=== PATIENT | male | born 1990 | race Caucasian/White ===

== ENCOUNTER 2020-12-19 21:55 | Emergency (ER) | payer OTHER ==
[~2020-12-19] VITALS: Ht 175.3 cm; Wt 97.5 kg
[2020-12-19] MEDS ORDERED: Adipex-P37.5 M1 PO (22:23)
[2020-12-19] MEDS ORDERED: CYCL10 (22:23)
[2020-12-19] MEDS ORDERED: ZOLPIDEM TARTRA10 MG PO (22:23)
[2020-12-19] MEDS ORDERED: VENLAFAXINE ER 150MG (22:24)
== END 2020-12-20 00:11 | disposition home or self-care (01) ==
LOC: ER 21:55
DX: S91.312A Laceration without foreign body, left foot, initial encounter (principal); W25.XXXA Contact with sharp glass, initial encounter
CPT/HCPCS: 12002; 73630; 99283-25

== ENCOUNTER → 2021-02-19 | Outpatient (CLI) | payer OTHER ==
[~2021-02-19] MED LIST: Adipex-P37.5 M1 PO; CYCL10; VENLAFAXINE ER 150MG; ZOLPIDEM TARTRA10 MG PO
== END | disposition home or self-care (01) ==
LOC: LAB SHORT 10:55
DX: D23.61 Other benign neoplasm of skin of right upper limb, including shoulder (principal)
CPT/HCPCS: 88305